=== PATIENT | female | born 1950 | race Caucasian/White ===

== ENCOUNTER 2019-07-02 08:51 | Emergency (ER) | payer OTHER ==
[~2019-07-02] VITALS: Ht 157.5 cm; Wt 72.6 kg
[~2019-07-02 08:51] MED LIST: LEVOTHYROXIN0.075 MG PO; NORCO 5-325 TA1 EACH PO
[2019-07-02] MEDS ORDERED: CLINDAMYCIN HC150 MG PO (11:00)
[2019-07-02] MEDS ORDERED: DOXYCYCLINE 10100 MG PO (11:00)
[2019-07-02 11:39] VITALS: BP 107/64
== END 2019-07-02 11:45 | disposition home or self-care (01) ==
LOC: ER 08:51
DX: S61.412A Laceration without foreign body of left hand, initial encounter (principal); Z88.0 Allergy status to penicillin; W55.51XA Bitten by raccoon, initial encounter; Y92.89 Other specified places as the place of occurrence of the external cause; Y93.89 Activity, other specified; Y99.8 Other external cause status

== ENCOUNTER 2019-07-05 14:16 | Emergency (ER) | payer OTHER ==
[~2019-07-05] VITALS: Ht 157.5 cm; Wt 72.6 kg
[~2019-07-05 14:16] MED LIST changes: +CLINDAMYCIN HC150 MG PO; +DOXYCYCLINE 10100 MG PO
[2019-07-05 14:19] VITALS: BP 161/89
== END 2019-07-05 15:00 | disposition home or self-care (01) ==
LOC: ER 14:16
DX: Z23 Encounter for immunization (principal)

== ENCOUNTER 2019-07-16 07:18 | Emergency (ER) | payer OTHER ==
[~2019-07-16] VITALS: Ht 157.5 cm; Wt 72.6 kg
[2019-07-16 07:18] VITALS: BP 97/70
== END 2019-07-16 08:14 | disposition home or self-care (01) ==
LOC: ER 07:18
DX: S61.411D Laceration without foreign body of right hand, subsequent encounter (principal); Z23 Encounter for immunization; Z88.0 Allergy status to penicillin; W55.51XD Bitten by raccoon, subsequent encounter